=== PATIENT | male | born 1965 | race Caucasian/White ===

== ENCOUNTER → 2020-09-02 14:37 | Outpatient (CLI) | payer BC, SELFPAY ==
[2020-09-03 13:54] LABS: COVID19 Sendout Not Detected (Not Detect)
== END ==
PROVIDERS: PCP Family Medicine; Visit Provider Nurse Practitioner
DX: Z11.59 Encounter for screening for other viral diseases (principal)
CPT/HCPCS: 87635

== ENCOUNTER 2020-09-05 10:19 | Day surgery (SDC) | payer BC, SELFPAY ==
[2020-09-03 07:36] VITALS: BMI 34.5
[2020-09-05] VITALS (14 sets, daily range): BP systolic 102–164; BP diastolic 57–109; PULSE 71–98; RESP 10–17; TEMP 36.1–36.6; O2SAT 8–98; BMI 34.5
--- NOTE | 2020-09-05 | DI.RAD.S_ITS ---
PROCEDURE: XR LUMBAR SPINE 2-3V INDICATIONS: L4-5 MICRODISCECTOMY TECHNIQUE: Fluoroscopic images were obtained during an operative procedure and submitted for interpretation following the completion of the procedure. COMPARISON: [facility] Outside Film, MR, MR LUMBAR SPINE WITHOUT CONTRAST, 07/05/2020, 8:33. [facility] Outside Film, CR, XR LUMBAR SPINE 2 OR 3 VIEWS, 01/12/2018, 9:59. FINDINGS: These fluoroscopic images were performed for intraoperative localization. On these images, metallic probes are seen posteriorly at the L4-L5 level. Please correlate with intraoperative findings. IMPRESSION: Normal intraoperative examination. Dictated by: Jacques Travis M.D. on 09/05/2020 at 12:07 Approved by: Jacques Travis M.D. on 09/05/2020 at 12:08
[2020-09-05] MEDS: ACETAMINOPHEN 325 MG TABLET 975 MG PO (11:07)
[2020-09-05] MEDS: LACTATED RINGERS 1,000 ML 42 ML IV (11:09)
--- NOTE | 2020-09-05 11:20 | PM.PREOP ---
Pre-operative Note COVID-19 COVID-19 status: Negative Result date/Date tested (Pos, Neg/Pending): 09/03/20 Interval Note History & Physical reviewed/Exam performed by Physician: Yes Changes to H&P: No
--- NOTE | 2020-09-05 11:43 | SUR.OPER ---
Prone on spine table, head in foam head support, padded chest and pelvic supports, gel pad at knees, lower legs supported by pillows; nipples, genitalia and toes free of pressure, arms secured on foam padded arm boards at <90 degrees abduction. Tape over blanket at thigh secured to table.
[2020-09-05] MEDS: CEFAZOLIN 2 GM/100 ML FROZ.PIGGY IV (11:52)
[2020-09-05] MEDS: BUPIVACAINE 0.25% W/ EPI 30 ML VIAL INJ (12:16)
[2020-09-05] MEDS: methylPREDNISolone acet DEPO 40 MG/ML VIAL INJ (12:17)
--- NOTE | 2020-09-05 13:26 | P.OP_ITS ---
Operative Date/Time/Diagnoses Date of procedure: 09/05/20 Time of procedure: 11:27 Pre-op diagnosis: 1. L4-5 disc herniation 2. L4-5 radiculopathy and spinal stenosis Post-op diagnosis: same Procedure & Clinicians Procedure: 1. L4-5 right microdiscectomy 2. Utilization of microsurgical technique and operating microscope Same procedure as scheduled: Yes Indications: Patient has been having chronic back pain and worsening lumbar radiculopathy. Patient failed multiple conservative management with worsening pain weakness and numbness in her lower extremity. Patient has been having difficulty performing activity of daily living. After discussing risks benefits of treatment options, patient elected proceed with surgery. Surgeon: Skyler Morgan Lubrication Supervisor: Erica Oshea'Brien Click Yes if Unassisted: No Anesthesia Type: General Operative Notes Closure Type: primary Specimen(s): none sent Estimated Blood Loss (mL): 10 Blood products transfused: none Procedure in detail: Patient was seen in the preoperative area. Risks and benefits of the surgery was discussed with the patient. Informed consent was obtained from the patient and placed in the chart. Surgical site was marked. Patient was taken to the operative room. General anesthesia was administered. Prophylactic antibiotic was given to the patient less than 30 min before the incision was made. Patient was placed into a prone position on the David table. Patient's back was then prepped and draped in the sterile fashion. Time- out was performed at this time. Using AP and lateral C-arm imaging the interval between L4-5 was identified and marked on patient's back. A 1 inch incision 1 in from midline was made on the right side. The fascia was incised in line with skin incision. Globus MARS retractors was placed inside the incision and docked onto the L4 lamina. Using microsurgical technique and operating microscope, a L4 laminotomy was performed using a Kerrison rongeur. Liagamentum flavum was resected at the site of the laminotomy. The disc space at L4-5 was identified. Microdiscectomy was performed by incising the annulus with #11 blade. Microcurettes and pituitary was used to removed herniated disc fragments of disc from the epidural space. Patient was found to have a significant disc herniation with impingement on the right L5 nerve root. The impingement was fully decompressed after the microdiskectomy was completed. After the microdiskectomy was completed, the area medial lateral superior and inferior to the area of the microdiskectomy was inspected and explored using a micro curette. No other impinging structure was identified. The wound was then irrigated with sterile normal saline. 40 mg Depo-Medrol was placed into the epidural space. The deep fascia was closed with 1-0 Vicryl. The subcutaneous tissue was closed with 2-0 Vicryl. The skin was closed with skin denzel. Patient tolerated the procedure well. There were no complications. Patient was transferred recovery room in stable condition. Complications: none Post-operative Condition: stable Disposition: PACU Plan for aftercare: Discharge to home
[2020-09-05] MEDS: HYDROMORPHONE 2 MG INJ IV ×4 (13:58→14:13)
--- NOTE | 2020-09-05 14:14 | SUR.PHASEI ---
Juan Antonio ASIF. Pt ADRIANA's x 4. Gave pain medication for c/o 06/16 pain. Tolerating po.
== END 2020-09-05 15:15 | disposition home or self-care (01) ==
LOC: OR 10:30 → AC 12:16 → ICU 12:24
PROVIDERS: PCP Family Medicine; Referring Provider Orthopaedic Surgery Orthopaedic Surgery of the Spine; Visit Provider Orthopaedic Surgery Orthopaedic Surgery of the Spine
PROC: (CPT 63030; principal; 2020-09-05 12:15)
DX: M51.16 Intervertebral disc disorders with radiculopathy, lumbar region (principal); M48.061 Spinal stenosis, lumbar region without neurogenic claudication; I10 Essential (primary) hypertension; E11.9 Type 2 diabetes mellitus without complications; Z79.4 Long term (current) use of insulin
CPT/HCPCS: 63030; 72100; 76000; J0330; J0690; J1030; J1170; J2250; J2405; J2704